=== PATIENT | male | born 1970 | race American Indian/Alaskan Native ===

== ENCOUNTER 2024-04-27 08:10 | Outpatient (AMB) | payer OTHER, SELFPAY ==
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
[2024-04-27 08:48] VITALS: BMI 39.8
== END 2024-04-27 09:08 | disposition home or self-care (01) ==
PROVIDERS: Visit Provider Physician Assistant
DX: M17.11 Unilateral primary osteoarthritis, right knee (principal); S80.01XA Contusion of right knee, initial encounter; V49.40XA Driver injured in collision with unspecified motor vehicles in traffic accident, initial encounter; Z04.3 Encounter for examination and observation following other accident
CPT/HCPCS: 99203; G2211

== ENCOUNTER 2024-04-27 08:10 | Outpatient (REF) | payer OTHER, SELFPAY ==
--- NOTE | ~2024-04-27 | XR_ITS ---
EXAMINATION: XR SINGLE VIEW AP UPRIGHT BOTH KNEES XR 2 VIEWS RIGHT KNEE CLINICAL INFORMATION: Pain in the left knee, osteoarthritis right knee. COMPARISON: None available. TECHNIQUE: Upright AP view of both knees. Patella and lateral views of the right knee. FINDINGS: RIGHT KNEE: Minimal osteoarthritis of the medial compartment with tiny marginal osteophytes without joint space narrowing. Lateral compartment: Normal. Patellofemoral compartment: Minimal marginal osteophytes without joint space narrowing indicative of minimal arthrosis. LEFT KNEE Limited AP upright: The medial and lateral compartments are normal. Surrounding bones and soft tissues are unremarkable. Cannot assess patellofemoral compartment XR/XR knee LT 1V IMPRESSION: RIGHT KNEE: Minimal osteoarthritis. LEFT KNEE: Limited. AP view No abnormality detected. Electronically signed by: Paulo Dallas MD 05/21/2024 07:08 AM EDT
--- NOTE | ~2024-04-27 | XR_ITS ---
EXAMINATION: XR SINGLE VIEW AP UPRIGHT BOTH KNEES XR 2 VIEWS RIGHT KNEE CLINICAL INFORMATION: Pain in the left knee, osteoarthritis right knee. COMPARISON: None available. TECHNIQUE: Upright AP view of both knees. Patella and lateral views of the right knee. FINDINGS: RIGHT KNEE: Minimal osteoarthritis of the medial compartment with tiny marginal osteophytes without joint space narrowing. Lateral compartment: Normal. Patellofemoral compartment: Minimal marginal osteophytes without joint space narrowing indicative of minimal arthrosis. LEFT KNEE Limited AP upright: The medial and lateral compartments are normal. Surrounding bones and soft tissues are unremarkable. Cannot assess patellofemoral compartment XR/XR knee RT 3V IMPRESSION: RIGHT KNEE: Minimal osteoarthritis. LEFT KNEE: Limited. AP view No abnormality detected. Electronically signed by: Paulo Dallas MD 05/21/2024 07:08 AM EDT
== END 2024-04-27 08:11 | disposition home or self-care (01) ==
LOC: HO.XRAY 08:10
PROVIDERS: Visit Provider Physician Assistant
DX: M25.562 Pain in left knee (principal); M17.11 Unilateral primary osteoarthritis, right knee
CPT/HCPCS: 73560; 73562